=== PATIENT | female | born 1960 ===

== ENCOUNTER 2020-06-14 12:00 | Inpatient (IN) | payer OTHER ==
[~2020-06-14] VITALS: Ht 160 cm; Wt 66.7 kg
[2020-06-14] MEDS ORDERED: PROGESTER PO (13:03)
[2020-06-20] MEDS ORDERED: MUPIROCIN22 GM (11:21)
[2020-06-20] MEDS ORDERED: PROGESTERONE100 M1 (11:21)
== END 2020-06-23 17:42 | disposition home or self-care (01) | DRG 331 ==
LOC: SURH 06-20 07:00 → SURG 06-20 07:10 → O/R 06-20 07:10 → SURH 06-20 12:00 → SURG 06-20 16:58
PROVIDERS: ADMIT Colon & Rectal Surgery; ATTEND Colon & Rectal Surgery
PROC: 07BC4ZX Excision of Pelvis Lymphatic, Percutaneous Endoscopic Approach, Diagnostic (ICD-10-PCS; 2020-06-20)
PROC: 0DTF4ZZ Resection of Right Large Intestine, Percutaneous Endoscopic Approach (ICD-10-PCS; principal; 2020-06-20 07:00)
DX: D12.2 Benign neoplasm of ascending colon (principal); F41.8 Other specified anxiety disorders; F17.200 Nicotine dependence, unspecified, uncomplicated